=== PATIENT | female | born 1990 ===

== ENCOUNTER → 2020-02-01 | Outpatient (CLI) | payer OTHER | END | disposition home or self-care (01) | LOC: PRENATAL 15:00 | PROVIDERS: ATTEND Obstetrics & Gynecology Maternal & Fetal Medicine | DX: O35.0XX1 Maternal care for (suspected) central nervous system malformation in fetus, fetus 1 (principal); O35.3XX1 Maternal care for (suspected) damage to fetus from viral disease in mother, fetus 1; O98.512 Other viral diseases complicating pregnancy, second trimester; Z36.89 Encounter for other specified antenatal screening; Z3A.18 18 weeks gestation of pregnancy ==

== ENCOUNTER 2020-05-31 20:00 | Inpatient (IN) | payer OTHER ==
[~2020-05-31] VITALS: Ht 170.2 cm; Wt 101.6 kg
[2020-05-31] MEDS ORDERED: PRENATAL + DHA1 EAC1 PO (21:12)
[2020-05-31] MEDS ORDERED: FOLIC ACID0.8 M1 PO (21:12)
== END 2020-06-04 14:31 | disposition home or self-care (01) | DRG 807 ==
LOC: LDR 20:00 → OB/GYN 06-02 15:27
PROVIDERS: ADMIT Obstetrics & Gynecology; ATTEND Obstetrics & Gynecology
PROC: 4A1HXFZ Monitoring of Products of Conception, Cardiac Rhythm, External Approach (ICD-10-PCS; 2020-05-31)
PROC: 3E033VJ Introduction of Other Hormone into Peripheral Vein, Percutaneous Approach (ICD-10-PCS; 2020-06-01)
PROC: 3E0P7VZ Introduction of Hormone into Female Reproductive, Via Natural or Artificial Opening (ICD-10-PCS; 2020-06-01)
PROC: 10E0XZZ Delivery of Products of Conception, External Approach (ICD-10-PCS; principal; 2020-06-02)
PROC: 0KQM0ZZ Repair Perineum Muscle, Open Approach (ICD-10-PCS; 2020-06-02)
PROC: 10907ZC Drainage of Amniotic Fluid, Therapeutic from Products of Conception, Via Natural or Artificial Opening (ICD-10-PCS; 2020-06-02)
DX: O13.4 Gestational [pregnancy-induced] hypertension without significant proteinuria, complicating childbirth (principal); O70.1 Second degree perineal laceration during delivery; Z37.0 Single live birth; Z3A.36 36 weeks gestation of pregnancy; Z20.822 Contact with and (suspected) exposure to COVID-19

== ENCOUNTER 2025-04-01 14:36 | Outpatient (CLI) | payer OTHER ==
[~2025-04-01 14:36] MED LIST: FOLIC ACID0.8 M1 PO; PRENATAL + DHA1 EAC1 PO
== END 2025-04-01 14:37 | disposition home or self-care (01) ==
LOC: PRENATAL 14:36
PROVIDERS: ATTEND Obstetrics & Gynecology Maternal & Fetal Medicine
DX: O44.02 Complete placenta previa NOS or without hemorrhage, second trimester (principal); O09.522 Supervision of elderly multigravida, second trimester; Z3A.20 20 weeks gestation of pregnancy